=== PATIENT | male | born 1990 | race Caucasian/White ===

== ENCOUNTER 2019-02-24 08:32 | Emergency (ER) | payer MEDICAID ==
[~2019-02-24] VITALS: Ht 172.7 cm; Wt 74.8 kg
[2019-02-24 08:37] VITALS: BP 145/74
[2019-02-24] MEDS ORDERED: LIDOCAINE 1% INJ 50 ML MDV IJ ONE (08:42)
--- NOTE | 2019-02-24 09:29 | NUR ---
LACERATION REPAIRED AND THEN DISCHARGED BY DR WEBBER
== END 2019-02-24 09:32 | disposition home or self-care (01) ==
LOC: ER 08:32 → EDBD 08:32 → ER 09:32
DX: S71.111A Laceration without foreign body, right thigh, initial encounter (principal); W25.XXXA Contact with sharp glass, initial encounter; Y93.89 Activity, other specified; Y92.89 Other specified places as the place of occurrence of the external cause; Y99.8 Other external cause status
CPT/HCPCS: 12002; 99283; A6403; J3490